=== PATIENT | female | born 1985 | race Caucasian/White ===

== ENCOUNTER 2018-01-05 09:47 | Emergency (ER) ==
[2018-01-05 09:54] VITALS: BP 160/114; TEMP 97.2; BMI 23.3
--- NOTE | 2018-01-05 11:17 | ED.PDOC ---
General ED Provider: Dr. NELA ALARCON Chief Complaint: Earache Stated Complaint: Complains of severe pain in lt ear since yesterday. Discomfort extending into EAC and side of face in front of the ear.Denies fever Time Seen by Physician: 20:00 Mode of Arrival: Walk-In Information Source: Patient Nursing and Triage Documentation Reviewed and Agree: Yes Reviewed sepsis parameters & appropriate labs ordered?: Yes System Inflammatory Response Syndrome: Not Applicable Sepsis Protocol: For patient's 13 years and over: Temp is 96.8 and below OR 101 and greater Pulse >90 BPM Resp >20/minute Acutely Altered Mental Status Are patient's symptoms suggestive of a new infection, such as: -Pneumonia -Skin, Soft Tissue -Endocarditis -UTI -Bone, Joint Infection -Implantable Device -Acute Abdominal Infection -Wound Infection -Meningitis -Blood Stream Catheter Infection -Unknown System Inflammatory Response Syndrome: Not Applicable EENT Complaint Exam - Ear Complaint/Exam Symptoms Are: Still present Timing: Constant Initial Severity: Severe Current Severity: Moderate Character: Reports: Dull pain, Aching pain. Denies: Dizzy, Room spinning, Throbbing pain, Unable to describe Aggravating: Reports: Position, Eating Alleviating: Reports: None Associated Signs and Symptoms: Reports: Ear swelling. Denies: Bleeding, Sore throat, Headache, URI symptoms, Pain to external ear, Pain to external face Related History: Denies: Similar Episode, Seasonal allergies Ear Surgical History: None Vesicles to External Pinna: No TMJ Tenderness: Left Mastoid Tenderness: None Tragal Tenderness: Left External Canal: Erythema, Tenderness Material in Canal: Absent: Cerumen, Cerumen impaction, Discharge Tympanic Membrane: Erythema, Bulging Differential Diagnoses: Otitis Externa, Otitis Media Review of Systems - Review Of Systems Constitutional: Reports: No symptoms Eyes: Reports: No symptoms Ears, Nose, Mouth, Throat: Reports: No symptoms, Ear pain Respiratory: Reports: No symptoms Cardiac: Reports: No symptoms GI: Reports: No symptoms : Reports: No symptoms Musculoskeletal: Reports: No symptoms Skin: Reports: No symptoms Neurological: Reports: No symptoms Endocrine: Reports: No symptoms Hematologic/Lymphatic: Reports: No symptoms All Other Systems: Reviewed and Negative Past Medical History - Past Medical History Previously Healthy: Yes Endocrine: Reports: None Cardiovascular: Reports: None Respiratory: Reports: None, Other (otitis) Hematological: Reports: None Gastrointestinal: Reports: None Genitourinary: Reports: None Neuro/Psych: Reports: None Musculoskeletal: Reports: None Cancer: Reports: None Last Menstrual Period: today Other Pertinent Past Medical History: 2 PARA 1 - Surgical History General Surgical History: Reports: , Other (D and C) - Family History Family History: Reports: Unknown - Social History Smoking Status: Current every day smoker Hx Substance Use: No Alcohol Screening: None - Immunizations Tetanus Shot up to Date: Yes Physical Exam - Physical Exam Appearance: Well-appearing, No pain distress, Well-nourished Ill-appearing: Mild Pain Distress: Moderate Eyes: GRIS, EOMI, Conjunctiva clear ENT: Ears normal, Nose normal, Oropharynx normal, Erythema (LT EAC TM Erythrema ) Neck: Supple (Tenderness sub auricular region and tragus) Respiratory: Airway patent, Breath sounds clear, Breath sounds equal, Respirations nonlabored Cardiovascular: RRR, Pulses normal, No rub, No murmur GI/: Soft, Nontender, No masses, Bowel sounds normal, No Organomegaly Musculoskeletal: Normal strength, ROM intact, No edema, No calf tenderness Skin: Warm, Dry, Normal color Neurological: Sensation intact, Motor intact, Reflexes intact, Cranial nerves intact, Alert, Oriented Psychiatric: Affect appropriate, Mood appropriate Critical Care Note - Critical Care Note Total Time (mins): 90 Course - Course Hematology/Chemistry: 01/05/18 11:55 01/05/18 11:55 Vital Signs: Temp Pulse Resp BP Pulse Ox 01/05/18 09:48 97.2 F L 103 H 20 160/114 H 95 Departure - Departure Time of Disposition: 12:30 Disposition: HOME SELF-CARE Discharge Problem: Otitis media, Otitis externa, Hypertension Discharge Problem: (Ruled Out): Otitis of left ear Instructions: Otitis Externa (ED), Ear Infection (ED), Hypertension (ED) Condition: Good Pt referred to PMD for follow-up: Yes IPMP verified?: No (NI) Additional Instructions: Use ear drops and take antibiotics as directed Follow up PCP in 7 days or if worsens return to earlier Prescriptions: Amoxicillin 875 mg PO BID #20 tablet Lisinopril 10 mg PO QPM #10 tablet Neomycin/Polymyxin B/Hc Otic [Cortisporin Otic Susp] 4 drop OT Q8H 7 Days #10 ml Allergies/Adverse Reactions: Allergies tape Adverse Reaction (Uncoded 01/05/18 09:56) Home Medications: Ambulatory Orders Amoxicillin 875 mg PO BID #20 tablet 01/05/18 Lisinopril 10 mg PO QPM #10 tablet 01/05/18 Neomycin/Polymyxin B/Hc Otic [Cortisporin Otic Susp] 4 drop OT Q8H 7 Days #10 ml 01/05/18 Disposition Discussed With: Patient
[2018-01-05] MEDS ORDERED: CATAPRES PO STA (11:37)
[2018-01-05] MEDS ORDERED: ZESTRIL PO STA (12:17)
== END 2018-01-05 12:30 | disposition home or self-care (01) ==
LOC: ED 09:47
DX: H66.92 Otitis media, unspecified, left ear (principal); H60.92 Unspecified otitis externa, left ear; I10 Essential (primary) hypertension; F17.210 Nicotine dependence, cigarettes, uncomplicated
CPT/HCPCS: 36415; 80053; 85025; 99283

== ENCOUNTER 2018-01-09 16:07 | Outpatient (CLI) | END 2018-01-09 16:08 | disposition home or self-care (01) | LOC: FCC-LAB 16:07 | PROVIDERS: ATTEND Nurse Practitioner Family | DX: I10 Essential (primary) hypertension (principal); E75.6 Lipid storage disorder, unspecified | CPT/HCPCS: 36415; 80061; 81001; 84439; 84443 ==

== ENCOUNTER 2018-01-17 08:39 | Outpatient (CLI) ==
--- NOTE | 2018-01-17 10:07 | DI ---
EXAM: CHEST FRONTAL AND LATERAL VIEWS HISTORY: Essential hypertension. COMPARISON: None FINDINGS: Heart size and mediastinal contour within normal limits. No acute infiltrates. Normal vascularity with no pleural fluid or pneumothorax. The bony thorax has no acute finding. IMPRESSION: No acute process.
== END 2018-01-17 08:40 | disposition home or self-care (01) ==
LOC: RAD 08:39
PROVIDERS: ATTEND Nurse Practitioner Family
DX: I10 Essential (primary) hypertension (principal)
CPT/HCPCS: 93005; 93010

== ENCOUNTER 2018-02-07 06:05 | Outpatient (CLI) ==
--- NOTE | 2018-02-11 08:46 | STRESSECHO ---
Date of Test: 02/07/18 Ordering Physician: MARI MTZ APRN Occupation: WORKS @ [employer] Reason for Exam: ABNORMAL EKG, FAMILY HISTORY OF CAD Smoking History: 60 PK/ YR Height: 64" Weight: 150 LBS Current Medications: LISINOPRIL, HTCZ, SIMVASTATIN Target Heart Rate: 161/ 190 Resting EKG: SINUS RHYTHM/ NO ACUTE CHANGES S-T SEGMENT STAGE MPH/GRADE HEART RATE BPM BLOOD PRESSURE MMHG RHYTHM +/- ELEVATION DEPRESSION SYMPTOMS,COMMENTS AT REST 70 110/82 SR X NONE 1 1.7/10% 110 138/78 SR X NONE 2 2.5/12% 130 146/64 SR X NONE 3 3.4/14% 4 4.2/16% 5 5.0/18% Immediately After 155 148/68 SR X FATIGUE Minutes Post Exercise 5:00 88 128/74 SR X NO COMMENTS Minutes Post Exercise DURATION OF EXERCISE: 5:00 MAXIMUM HEART RATE REACHED: 155 REASON FOR TERMINATION: FATIGUE 100% OXYGEN SATURATION WITH EXERCISE ON ROOM AIR METS: 10.1 INTERPRETATION: 1. NO EVIDENCE OF ISCHEMIA BY ST-T WAVE 2. NO CHEST PAIN OR CHEST DISCOMFORT 3. BLOOD PRESSURE RESPONSE NORMAL 4. NO ARRHYTHMIAS NORMAL LEFT VENTRICULAR CONTRACTILITY--RESTING AND POST EXERCISE MTDD
--- NOTE | 2018-02-11 08:52 | ECHOSTRESS ---
Date of Exam: 02/07/18 Ordering Physician: MARI MTZ APRN Reason for Echo: ABNORMAL EKG, STRESS TEST--NO ISCHEMIA M-Mode Normal Adult Results LV Dimensions Normal Adult Results AoV Opening excursions >1.6 LVEDD-base- 3.5-5.8 Ao root dimensions 2.0-3.7 LVESD-base- 3.1-4.6 L. Atrium dimensions 1.9-3.8 Post. Wall thickness 0.8-1.1 IV septum (thickness) 0.7-1.2 Post. Wall excursion 0.72-1.3 Septal motion Systolic motion R. Ventricular cavity 1.5-2.0 LVEF 60% Paradoxical septal wall motion 2-D: NORMAL LEFT VENTRICULAR CONTRACTILITY--RESTING AND POST EXERCISE M-MODE: MV: AV: TV: PV: CHAMBER SIZE: WALL MOTION: NORMAL LEFT VENTRICULAR CONTRACTILITY--RESTING AND POST EXERCISE PERICARDIUM: INTERPRETATION: 1. NORMAL LEFT VENTRICULAR CONTRACTILITY--RESTING AND POST EXERCISE MTDD
== END 2018-02-07 06:06 | disposition home or self-care (01) ==
LOC: CAR 06:05
PROVIDERS: ATTEND Nurse Practitioner Family
DX: R94.31 Abnormal electrocardiogram [ECG] [EKG] (principal)

== ENCOUNTER 2018-04-23 11:43 | Outpatient (CLI) | END 2018-04-23 11:44 | disposition home or self-care (01) | LOC: RHC-LAB 11:43 | PROVIDERS: ATTEND Nurse Practitioner Family | DX: E78.5 Hyperlipidemia, unspecified (principal); E78.1 Pure hyperglyceridemia | CPT/HCPCS: 36415; 80053; 80061 ==

== ENCOUNTER 2018-05-05 18:10 | Emergency (ER) ==
[2018-05-05 18:11] VITALS: BMI 23.3
[2018-05-05 18:18] VITALS: BP 130/83; TEMP 98.7
--- NOTE | 2018-05-05 18:24 | ED.PDOC ---
General ED Provider: Dr. NELA POWELL-ER Chief Complaint: Tooth Problem Stated Complaint: my tooth broke on a chili dog Time Seen by Physician: 18:15 Mode of Arrival: Walk-In Information Source: Patient Exam Limitations: No limitations Primary [facility] and Triage Documentation Reviewed and Agree: Yes Does patient meet sepsis criteria?: No System Inflammatory Response Syndrome: Not Applicable Sepsis Protocol: For patient's 13 years and over: Temp is 96.8 and below OR 101 and greater Pulse >90 BPM Resp >20/minute Acutely Altered Mental Status Are patient's symptoms suggestive of a new infection, such as: -Pneumonia -Skin, Soft Tissue -Endocarditis -UTI -Bone, Joint Infection -Implantable Device -Acute Abdominal Infection -Wound Infection -Meningitis -Blood Stream Catheter Infection -Unknown EENT Complaint Exam - Dental/Oral Complaint/Exam Mechanism of Injury: No known trauma Onset/Duration: 1 hr Symptoms Are: Still present Timing: Constant Initial Severity: Mild Current Severity: Mild Location: lower premolar Character: Reports: Dull, Aching, Throbbing Aggravating: Reports: Heat, Cold, Chewing Alleviating: Reports: None Associated Signs and Symptoms: Reports: Swelling Related History: Reports: Previous tooth problem Dental/Oral Surgical History: Reports: None Tooth Findings: Present: Percussion tenderness, Gross decay, Gross caries Cervical Lymphadenopathy Present: No Facial Swelling Present: No Bleeding Present: No Oropharynx Findings: Absent: Clots, Active bleeding Septal Hematoma: No Foreign Body Present: No Dysphagia Present: No Drooling Present: No Uvula Midline: Yes Yana-tonsillar Fluctuence: No Trismus Present: No Palatal Petechiae Present: No Scarlatinaform Rash Present: No Differential Diagnoses: Dental Caries Review of Systems - Review Of Systems Constitutional: Reports: No symptoms Eyes: Reports: No symptoms Ears, Nose, Mouth, Throat: Reports: No symptoms, Mouth pain Respiratory: Reports: No symptoms Cardiac: Reports: No symptoms GI: Reports: No symptoms : Reports: No symptoms Musculoskeletal: Reports: No symptoms Skin: Reports: No symptoms Neurological: Reports: No symptoms Endocrine: Reports: No symptoms Hematologic/Lymphatic: Reports: No symptoms All Other Systems: Reviewed and Negative Past Medical History - Past Medical History Previously Healthy: Yes Endocrine: Reports: None Cardiovascular: Reports: None Respiratory: Reports: None, Other (otitis) Hematological: Reports: None Gastrointestinal: Reports: None Genitourinary: Reports: None Neuro/Psych: Reports: None Musculoskeletal: Reports: None Cancer: Reports: None Last Menstrual Period: first week of Aug Other Pertinent Past Medical History: 2 PARA 1 - Surgical History General Surgical History: Reports: , Other (D and C) - Family History Family History: Reports: Unknown - Social History Smoking Status: Current every day smoker, Heavy tobacco smoker Hx Substance Use: No Alcohol Screening: None Physical Exam - Physical Exam Appearance: Well-appearing, No pain distress, Well-nourished Pain Distress: Mild Eyes: GRIS, EOMI, Conjunctiva clear ENT: Ears normal, Nose normal, Oropharynx normal Neck: Supple Respiratory: Airway patent Cardiovascular: RRR, Pulses normal, No rub, No murmur GI/: Soft, Nontender, No masses, Bowel sounds normal, No Organomegaly Musculoskeletal: Normal strength Skin: Warm, Dry, Normal color Neurological: Sensation intact, Motor intact, Reflexes intact, Cranial nerves intact, Alert, Oriented Psychiatric: Affect appropriate Critical Care Note - Critical Care Note Total Time (mins): 0 Course - Course Vital Signs: Temp Pulse Resp BP Pulse Ox 05/05/18 18:11 98.7 F 108 H 20 130/83 95 Departure - Departure Time of Disposition: 18:23 Disposition: HOME SELF-CARE Discharge Problem: Dental caries Instructions: Toothache (ED) Condition: Good Pt referred to PMD for follow-up: Yes IPMP verified?: No Additional Instructions: toradol 10mg qid prn pain #15--augmentin 875mg bid x 7 days--f/u with dentist rachel Allergies/Adverse Reactions: Allergies tape Adverse Reaction (Uncoded 01/05/18 09:56) Disposition Discussed With: Patient
== END 2018-05-05 18:32 | disposition home or self-care (01) ==
LOC: ED 18:10
DX: K02.7 Dental root caries (principal); K08.89 Other specified disorders of teeth and supporting structures; S02.5XXA Fracture of tooth (traumatic), initial encounter for closed fracture; F17.210 Nicotine dependence, cigarettes, uncomplicated
CPT/HCPCS: 99282

== ENCOUNTER 2018-05-08 14:10 | Emergency (ER) ==
[2018-05-08 14:10] VITALS: BMI 23.3
[2018-05-08 14:16] VITALS: BP 125/85; TEMP 97.9
--- NOTE | 2018-05-08 14:24 | ED.PDOC ---
General ED Provider: Dr. CALE PIRES Chief Complaint: Tooth Problem Stated Complaint: DENTAL PAIN Time Seen by Physician: 14:11 Mode of Arrival: Walk-In Information Source: Patient Primary Care Provider: [facility] Nursing and Triage Documentation Reviewed and Agree: Yes Does patient meet sepsis criteria?: No If yes, has appropriate treatment been initiated?: No System Inflammatory Response Syndrome: Not Applicable Sepsis Protocol: For patient's 13 years and over: Temp is 96.8 and below OR 101 and greater Pulse >90 BPM Resp >20/minute Acutely Altered Mental Status Are patient's symptoms suggestive of a new infection, such as: -Pneumonia -Skin, Soft Tissue -Endocarditis -UTI -Bone, Joint Infection -Implantable Device -Acute Abdominal Infection -Wound Infection -Meningitis -Blood Stream Catheter Infection -Unknown EENT Complaint Exam - Dental/Oral Complaint/Exam Mechanism of Injury: No known trauma Onset/Duration: 1 WEEK Symptoms Are: Still present Timing: Intermittent Initial Severity: Moderate Current Severity: Moderate Character: Reports: Throbbing Aggravating: Reports: None, Heat, Cold Associated Signs and Symptoms: Denies: Swelling, Discharge, Fever, Foul odor, Foul taste in mouth Cardiac Risk Factors: Reports: None Dental/Oral Surgical History: Reports: None Tooth Findings: Present: Gross decay, Gross caries, Dental fracture Cervical Lymphadenopathy Present: No Facial Swelling Present: No Bleeding Present: No Oropharynx Findings: Absent: Clots, Active bleeding Septal Hematoma: No Foreign Body Present: No Dysphagia Present: No Drooling Present: No Asymmetrical Tonsillar Swelling Present: No Uvula Midline: Yes Yana-tonsillar Fluctuence: No Trismus Present: No Palatal Petechiae Present: No Scarlatinaform Rash Present: No Lesions: Absent: Lip, Gums, Tongue, Buccal Mucosa, Pharynx Teeth Picture: 1 - DECAY, BROKEN Differential Diagnoses: Dental Caries, Fractured Tooth Review of Systems - Review Of Systems Constitutional: Reports: No symptoms Eyes: Reports: No symptoms Ears, Nose, Mouth, Throat: Reports: No symptoms Respiratory: Reports: No symptoms Cardiac: Reports: No symptoms GI: Reports: No symptoms : Reports: No symptoms Musculoskeletal: Reports: No symptoms Skin: Reports: No symptoms Neurological: Reports: No symptoms Endocrine: Reports: No symptoms Hematologic/Lymphatic: Reports: No symptoms All Other Systems: Reviewed and Negative Past Medical History - Past Medical History Previously Healthy: Yes Endocrine: Reports: None Cardiovascular: Reports: None Respiratory: Reports: None, Other (otitis) Hematological: Reports: None Gastrointestinal: Reports: None Genitourinary: Reports: None Neuro/Psych: Reports: None Musculoskeletal: Reports: None Cancer: Reports: None Last Menstrual Period: 04/10/18 Other Pertinent Past Medical History: 2 PARA 1 - Surgical History General Surgical History: Reports: , Other (D and C) - Family History Family History: Reports: Unknown - Social History Smoking Status: Current every day smoker, Heavy tobacco smoker Hx Substance Use: No Alcohol Screening: None Physical Exam - Physical Exam Appearance: Well-appearing, No pain distress, Well-nourished Eyes: GRIS, EOMI, Conjunctiva clear ENT: Ears normal, Nose normal, Oropharynx normal Respiratory: Airway patent, Breath sounds clear, Breath sounds equal, Respirations nonlabored Cardiovascular: RRR, Pulses normal, No rub, No murmur GI/: Soft, Nontender, No masses, Bowel sounds normal, No Organomegaly Musculoskeletal: Normal strength, ROM intact, No edema, No calf tenderness Skin: Warm, Dry, Normal color Neurological: Sensation intact, Motor intact, Reflexes intact, Cranial nerves intact, Alert, Oriented Psychiatric: Affect appropriate, Mood appropriate Critical Care Note - Critical Care Note Total Time (mins): 0 Course - Course Vital Signs: Temp Pulse Resp BP Pulse Ox 05/08/18 14:11 97.9 F 72 16 125/85 98 Departure - Departure Time of Disposition: 14:23 Disposition: HOME SELF-CARE Discharge Problem: Toothache Instructions: Toothache (ED) Condition: Good Pt referred to PMD for follow-up: Yes IPMP verified?: No Additional Instructions: Please call your Family Physician as soon as possible to schedule a follow-up appointment. Prescriptions: Amoxicillin 500 mg PO Q6HR #30 tablet Hydrocodone/Acetaminophen [Kosse 10-325 Tablet] 1 each PO Q8HR #20 tablet Allergies/Adverse Reactions: Allergies tape Adverse Reaction (Uncoded 05/08/18 14:16) Home Medications: Ambulatory Orders Amoxicillin 500 mg PO Q6HR #30 tablet 05/08/18 Amoxicillin/Potassium Clav [Augmentin 875-125 mg Tab] 1 tab PO Q12HR 05/08/18 Hydrocodone/Acetaminophen [Kosse 10-325 Tablet] 1 each PO Q8HR #20 tablet Ketorolac Tromethamine [Toradol] 10 mg PO Q6HR 05/08/18
== END 2018-05-08 14:29 | disposition home or self-care (01) ==
LOC: ED 14:10
DX: K08.89 Other specified disorders of teeth and supporting structures (principal); K02.7 Dental root caries; S02.5XXA Fracture of tooth (traumatic), initial encounter for closed fracture; F17.210 Nicotine dependence, cigarettes, uncomplicated
CPT/HCPCS: 99282

== ENCOUNTER 2018-10-17 09:24 | Outpatient (CLI) | END 2018-10-17 09:25 | disposition home or self-care (01) | LOC: RHC-LAB 09:24 | PROVIDERS: ATTEND Nurse Practitioner Family | DX: E78.5 Hyperlipidemia, unspecified (principal); E78.1 Pure hyperglyceridemia | CPT/HCPCS: 36415; 80053; 80061 ==

== ENCOUNTER 2019-03-15 11:32 | Emergency (ER) ==
[2019-03-15 11:36] VITALS: BP 109/72; TEMP 98.7; BMI 21.9
--- NOTE | 2019-03-15 11:46 | ED.PDOC ---
General ED Provider: Dr. IMTIAZ ROBERT Chief Complaint: Earache Stated Complaint: 3 days history of left ear pain. Took Aleve not better. Time Seen by Physician: 11:44 Mode of Arrival: Walk-In Information Source: Patient Exam Limitations: No limitations Primary Care Provider: VALERIY BONDS Nursing and Triage Documentation Reviewed and Agree: Yes Does patient meet sepsis criteria?: No System Inflammatory Response Syndrome: Not Applicable Sepsis Protocol: For patient's 13 years and over: Temp is 96.8 and below OR 101 and greater Pulse >90 BPM Resp >20/minute Acutely Altered Mental Status Are patient's symptoms suggestive of a new infection, such as: -Pneumonia -Skin, Soft Tissue -Endocarditis -UTI -Bone, Joint Infection -Implantable Device -Acute Abdominal Infection -Wound Infection -Meningitis -Blood Stream Catheter Infection -Unknown EENT Complaint Exam - Ear Complaint/Exam Onset/Duration: 3 days Symptoms Are: Still present Timing: Constant Initial Severity: Moderate Current Severity: Severe Character: Reports: Dull pain, Aching pain Aggravating: Reports: Tugging on ear Associated Signs and Symptoms: Reports: Pain to external face. Denies: Ear trauma, Ear swelling, Discharge, Fever, Hearing loss, Bleeding, Sore throat, Headache, URI symptoms, Foreign body sensation, Rash, Pain to external ear Ear Surgical History: None Vesicles to External Pinna: No Vesicles to Tragus: No TMJ Tenderness: None Mastoid Tenderness: None Tragal Tenderness: None External Canal: Normal Material in Canal: Present: Cerumen (on the left ) Tympanic Membrane: Dullness Differential Diagnoses: Otitis Media, URI, Other (Dental pain ) Review of Systems - Review Of Systems Constitutional: Reports: No symptoms Eyes: Reports: No symptoms Ears, Nose, Mouth, Throat: Reports: Ear pain, Mouth pain Respiratory: Reports: No symptoms Cardiac: Reports: No symptoms GI: Reports: No symptoms : Reports: No symptoms Musculoskeletal: Reports: No symptoms Skin: Reports: No symptoms Neurological: Reports: No symptoms Endocrine: Reports: No symptoms Hematologic/Lymphatic: Reports: No symptoms All Other Systems: Reviewed and Negative Past Medical History - Past Medical History Previously Healthy: Yes Endocrine: Reports: None Cardiovascular: Reports: None Respiratory: Reports: None, Other (otitis) Hematological: Reports: None Gastrointestinal: Reports: None Genitourinary: Reports: None Neuro/Psych: Reports: None Musculoskeletal: Reports: None Cancer: Reports: None Last Menstrual Period: 02/17/19 Other Pertinent Past Medical History: 2 PARA 1 - Surgical History General Surgical History: Reports: , Other (D and C) - Family History Family History: Reports: Unknown - Social History Smoking Status: Current every day smoker, Heavy tobacco smoker Hx Substance Use: No Alcohol Screening: None Physical Exam - Physical Exam Appearance: Ill-appearing, Thin Ill-appearing: Mild Pain Distress: Severe Eyes: GRIS, EOMI, Conjunctiva clear ENT: Erythema Neck: Supple Respiratory: Airway patent, Breath sounds clear, Breath sounds equal, Respirations nonlabored Cardiovascular: RRR, Pulses normal, No rub, No murmur Skin: Warm, Dry Neurological: Sensation intact, Motor intact, Cranial nerves intact, Alert, Oriented Psychiatric: Anxious Critical Care Note - Critical Care Note Total Time (mins): 0 Course - Course Vital Signs: Temp Pulse Resp BP Pulse Ox 03/15/19 11:32 98.7 F 86 16 109/72 98 Departure - Departure Time of Disposition: 11:46 Disposition: HOME SELF-CARE Discharge Problem: Pain, dental Otitis media Qualifiers: Otitis media type: other nonsuppurative Chronicity: acute Laterality: left Recurrence: non-recurrent Qualified Code(s): H65.192 - Other acute nonsuppurative otitis media, left ear Instructions: Ear Infection (ED) Condition: Fair Pt referred to PMD for follow-up: Yes IPMP verified?: No Additional Instructions: take Antibiotics as prescribed Follow up with PCP in 3 days. Prescriptions: Amoxicillin [Amoxil] 500 mg PO TID #30 capsule Ibuprofen [Motrin] 600 mg PO Q6H PRN #30 tablet PRN Reason: Analgesia Tramadol HCl [Ultram] 50 mg PO Q6H PRN #14 tablet PRN Reason: Severe Pain Allergies/Adverse Reactions: Allergies tape Adverse Reaction (Uncoded 03/15/19 11:36) Home Medications: Ambulatory Orders Amoxicillin [Amoxil] 500 mg PO TID #30 capsule 03/15/19 Ibuprofen [Motrin] 600 mg PO Q6H PRN #30 tablet 03/15/19 Tramadol HCl [Ultram] 50 mg PO Q6H PRN #14 tablet 03/15/19 Disposition Discussed With: Patient
== END 2019-03-15 12:01 | disposition home or self-care (01) ==
LOC: ED 11:32
DX: H65.192 Other acute nonsuppurative otitis media, left ear (principal); K08.89 Other specified disorders of teeth and supporting structures; F17.210 Nicotine dependence, cigarettes, uncomplicated
CPT/HCPCS: 99282